=== PATIENT | female | born 1965 | race Caucasian/White ===

== ENCOUNTER 2023-08-13 21:32 | Emergency (ER) | payer BC, SELFPAY ==
[2023-08-13 22:02] LABS: Bilirubin Small (Negative); Blood, Urine Large (Negative); Clarity Cloudy (Clear); Glucose, Urine (Dipstick) Negative (Negative); Ketone, Urine Negative (Negative); Leukocyte Trace (Negative); Nitrite Positive (Negative); Protein, Urine (Dipstick) > or equal to 300 mg/dL (Neg-Trace); Specific Gravity, Urine 1.025 (1.005-1.030)
[2023-08-13 22:03] LABS: CAUTI Indications for Culture Dysuria,urgency,freq
[2023-08-13 22:08] LABS: RBC/HPF Greater than 50 HPF (0-3)
[2023-08-13 22:09] LABS: Bacteria/HPF 1+ HPF (None Seen); Squamous Epithelial 0-3 HPF (0-3)
[2023-08-13 22:10] LABS: Urine Culture Reflex No No
[2023-08-13] MEDS ORDERED: cefTRIAXone (ROCEPHIN) 1 GM VIAL ONE (22:12)
[2023-08-13] MEDS ORDERED: Lidocaine 1% PF 5 ML VIAL ONE (22:12)
== END 2023-08-13 22:28 | disposition home or self-care (01) ==
LOC: MADERS 21:32
DX: N39.0 Urinary tract infection, site not specified (principal); E11.9 Type 2 diabetes mellitus without complications; I10 Essential (primary) hypertension
CPT/HCPCS: 81001; 96372; 99283; J0696